=== PATIENT | female | born 1960 | race Caucasian/White ===

== ENCOUNTER → 2020-10-11 12:32 | Outpatient (CLI) | payer OTHER, SELFPAY ==
--- NOTE | 2020-10-11 12:59 | CT_ITS ---
PROCEDURE INFORMATION: Exam: CT Abdomen And Pelvis With Contrast Exam date and time: 10/11/2020 12:59 PM Age: 60 years old Clinical indication: Abdominal tenderness and fever; Prior surgery; Surgery date: 6+ months; Surgery type: Cholecystectomy, appendectomy, colon, , hysterectomy; Additional info: Fever chills, decreased appetite, n/v, S/P small bowel resectio TECHNIQUE: Imaging protocol: Computed tomography of the abdomen and pelvis with contrast. Radiation optimization: All CT scans at this facility use at least one of these dose optimization techniques: automated exposure control; mA and/or kV adjustment per patient size (includes targeted exams where dose is matched to clinical indication); or iterative reconstruction. Contrast material: ISOVUE 370; Contrast volume: 75 ml; Contrast route: INTRAVENOUS (IV); Other contrast: Oral, redicat; COMPARISON: No relevant prior studies available. FINDINGS: Lungs: There is a small ground-glass opacity in the inferior right upper lobe as on series 4, image 3. Mediastinal space: There is a small hiatal hernia. Liver: There is a 1.8 cm cyst in the right lobe of the liver. Gallbladder and bile ducts: There is no biliary ductal dilatation status post cholecystectomy. Pancreas: No evidence of focal lesion or ductal dilatation. Spleen: No splenomegaly. A splenic calcification likely represents a calcified granuloma. Adrenal glands: There are left adrenal nodules measuring 0.8 and 0.9 cm best seen on series 601, image 50, indeterminate. No right adrenal nodule. Kidneys and ureters: No hydronephrosis, calculus or enhancing lesion. Subcentimeter hypodense lesions in both kidneys are too small to accurately characterize. Stomach and bowel: No distention or wall thickening. Appendix: The appendix is surgically absent. Intraperitoneal space: No free air or fluid. No focal fluid collection. Vasculature: The abdominal aorta is normal in caliber. Lymph nodes: There is a partially imaged calcified lymph node in the region of the right hilum. No lymphadenopathy. Urinary bladder: Unremarkable as visualized. Reproductive: Status post hysterectomy. The adnexa are unremarkable. Bones/joints: No acute fracture. There are degenerative changes of the spine. Soft tissues: There is a tiny fat containing umbilical hernia. IMPRESSION: 1. No acute inflammatory process in the abdomen or pelvis. 2. Ground-glass opacity in the right lung base could be secondary to an infectious or inflammatory process. 3. Left adrenal nodules measuring up to 0.9 cm in size. COMMENTS: 1. Consistent with the [employer]'s Incidental Findings Committee white paper (J Am Diana Radiol 2017): Any incidental adrenal lesion less than or equal to 1 cm is likely benign. No follow-up imaging is recommended for these lesions per consensus recommendations based on imaging criteria. Further lab evaluation could be pursued if warranted based on clinical findings. 2. Consistent with the [employer]'s Incidental Findings Committee white paper (J Am Diana Radiol 2018): Any incidental renal lesion less than 1 cm or classified as too small to characterize, or any incidental cystic renal lesion characterized as simple-appearing, is likely benign. No follow-up imaging is recommended for these lesions per consensus recommendations based on imaging criteria.
[2020-10-11 13:00] LABS: Basophils # 0.1 K/mm3 (0-0.2); Basophils % 0.6 % (0.1-2.0); Eosinophils # 0.2 K/mm3 (0.0-0.4); Eosinophils % 1.8 % (0.1-12.0); Hematocrit 46.1 % (37.0-47.0); Hemoglobin 15.1 g/dL (12.2-16.2); Lymphocytes # 2.2 K/mm3 (0.7-4.5); Lymphocytes % 23.7 % (10-50); Mean Corpuscular HGB Conc 32.8 g/dL (31.8-35.4); Mean Corpuscular Hemoglobin 29.8 pg (27.0-31.2); Mean Corpuscular Volume 90.8 fl (81-99); Mean Platelet Volume 8.1 fl (7.4-10.4); Monocytes # 0.4 K/mm3 (0.1-1.0); Monocytes % 4.7 % (1.7-9.3); Neutrophils # 6.3 K/mm3 (1.8-7.8); Neutrophils % 69.2 % (37.0-80.0); Platelet Count 256 K/mm3 (142-424); Red Blood Count 5.08 M/mm3 (4.20-5.40); Red Cell Distribution Width 13.5 % (11.5-17.5); White Blood Count 9.1 K/mm3 (4.8-10.8)
[2020-10-11 13:06] LABS: Chloride 107 mmol/L (98-107); Potassium 3.8 mmoL/L (3.5-5.1); Sodium 140 mmol/L (136-145)
[2020-10-11 13:08] LABS: Alanine Aminotransferase 30 U/L (12-78); Amylase 79 U/L (30-110); Aspartate Amino Transferase 29 U/L (14-36); Blood Urea Nitrogen 12 mg/dl (7-17); Estimated Glomerular Filt Rate 102 ml/min (>60); GFR (African American) 124 ML/MIN (>60)
[2020-10-11 13:09] LABS: Albumin Level 4.2 g/dl (3.5-5.0); Albumin/Globulin Ratio 1.4 (1.1-1.8); Alkaline Phosphatase 129 U/L (38-126); Anion Gap 11.8 mEq/L (5-15); Bilirubin,Total 0.4 mg/dl (0.2-1.3); Calcium 9.3 mg/dl (8.4-10.2); Carbon Dioxide 25 mmol/L (22.0-30.0); Glucose 137 mg/dl (74-100); Lipase 137 U/L (23-300); Total Protein,Serum 7.2 g/dl (6.3-8.2)
== END ==
PROVIDERS: Visit Provider Nurse Practitioner Family
DX: R10.84 Generalized abdominal pain (principal); R50.9 Fever, unspecified; R63.0 Anorexia; R11.0 Nausea; Z90.49 Acquired absence of other specified parts of digestive tract
CPT/HCPCS: 36415; 74177; 80053; 82150; 83690; 85025; Q9967

== ENCOUNTER 2024-01-01 16:38 | Outpatient (CLI) | payer OTHER, SELFPAY ==
[2024-01-01 17:28] LABS: Hemoglobin A1C 8.1 % (4.0-6.0)
[2024-01-01 18:11] LABS: Alanine Aminotransferase 27 U/L (12-78); Albumin Level 4.2 g/dl (3.5-5.0); Albumin/Globulin Ratio 1.5 (1.1-1.8); Alkaline Phosphatase 176 U/L (38-126); Anion Gap 13.4 mEq/L (5-15); Aspartate Amino Transferase 26 U/L (14-36); Bilirubin,Total 0.4 mg/dl (0.2-1.3); Blood Urea Nitrogen 13 mg/dl (7-17); Calcium 9.9 mg/dl (8.4-10.2); Carbon Dioxide 21 mmol/L (22.0-30.0); Chloride 109 mmol/L (98-107); Chol/HDL Ratio 4.4 (1-3.5); Cholesterol 190 mg/dl (140-200); Estimated Glomerular Filt Rate 73 ml/min (>60); GFR (African American) 88 ML/MIN (>60); Globulin 2.8 g/dL (1.3-3.2); Glucose 138 mg/dl (74-100); HDL Cholesterol 43 mg/dl (40-60); Potassium 4.4 mmoL/L (3.5-5.1); Sodium 139 mmol/L (136-145); Triglycerides 242 mg/dl (30-150); VLDL Cholesterol 48 mg/dL (0-40)
[2024-01-01 18:22] LABS: Direct LDL Cholesterol 108.88 mg/dL (100-129)
[2024-01-01 18:41] LABS: Thyroid Stimulating Hormone 0.59 uIU/mL (0.465-4.68)
== END 2024-01-01 23:59 | disposition home or self-care (01) ==
LOC: LAB.DROPOF 16:39
PROVIDERS: PCP Nurse Practitioner Family; Visit Provider Nurse Practitioner Family
DX: E11.9 Type 2 diabetes mellitus without complications (principal); E78.5 Hyperlipidemia, unspecified
CPT/HCPCS: 80053; 80061; 82043; 83036; 84443

== ENCOUNTER 2024-01-10 10:36 | Outpatient (CLI) | payer OTHER, SELFPAY ==
--- NOTE | 2024-01-10 10:36 | MM_ITS ---
PROCEDURE INFORMATION: Exam: MG Bilateral Screening 3D Mammography Exam date and time: 01/10/2024 10:26 AM Age: 63 years old Clinical indication: Screening examination TECHNIQUE: Imaging protocol: Bilateral Screening tomosynthesis and 2D mammography including computer-aided detection (CAD) when performed. COMPARISON: 1. MG SCN DIG BREAST TOMOSYN NAVIN 03/19/2018 10:13 AM 2. MG DIG MAMMO BILAT SCREENING 04/12/2016 11:21 AM FINDINGS: MAMMOGRAPHY: Breast composition: The breasts are heterogeneously dense, which may obscure small masses. Mass: None. Architectural distortion: None. Calcifications: No suspicious calcifications. Asymmetric density: None. Skin thickening: None. Axillary adenopathy: None. IMPRESSION: No mammographic evidence of malignancy. Annual screening is recommended unless otherwise clinically indicated. ASSESSMENT: BI-RADS Category 1: Negative
== END 2024-01-10 23:59 | disposition home or self-care (01) ==
LOC: RAD 10:36
PROVIDERS: PCP Nurse Practitioner Family; Visit Provider Nurse Practitioner Family
DX: Z12.31 Encounter for screening mammogram for malignant neoplasm of breast (principal)
CPT/HCPCS: 77063; 77067

== ENCOUNTER 2024-03-18 13:16 | Outpatient (CLI) | payer BC, SELFPAY ==
--- NOTE | 2024-03-18 13:16 | MM_ITS ---
PROCEDURE INFORMATION: Exam: US Right Breast, Complete MG Right Diagnostic Breast Tomosynthesis Exam date and time: 03/18/2024 1:25 PM Age: 64 years old Clinical indication: Right breast palpable lump; Mass, lump, or swelling; Additional info: Right breast lump at 11:00 TECHNIQUE: Imaging protocol: Complete ultrasound of all four quadrants of the right breast and the retroareolar regions, including ultrasound of the axilla when performed. Right Diagnostic tomosynthesis and 2D mammography including computer-aided detection (CAD) when performed. Unilateral or bilateral exam. COMPARISON: MG MM DIG SCREENING MAMM BI W/CAD 01/10/2024 10:26 AM FINDINGS: MAMMOGRAPHY: Breast composition: There are scattered areas of fibroglandular density. Breast mammogram findings: A skin marker is placed over the palpable area of concern in the right upper outer quadrant. There are fat containing masses which correlate to the palpable area of concern, indicative of lipomas, the largest measuring 1.7 cm. There is no suspicious or irregular mass, no architectural distortion or suspicious calcifications. ULTRASOUND: Breast ultrasound findings: Complete scanning of the right breast is performed. In the area of palpable concern, 11 o'clock axis, 4 cm from the nipple, there is a hyperechoic superficial mass, measuring 1.6 x 0.8 x 2.0 cm, correlating to the larger fat containing mass on the mammogram. No suspicious distortion or shadowing. Throughout the remainder of the right breast, there are multiple simple and complicated subcentimeter cysts that are similar to 1 another. In the right breast 10 o'clock axis, 3 cm from the nipple, there is a circumscribed hypoechoic homogeneous mass measuring 1.5 x 0.9 x 1.0 cm. This is most probably a fibroadenoma. No suspicious shadowing or distortion. IMPRESSION: 1. In the right breast palpable area of concern, there is a benign fat containing mass, likely lipoma, measuring 2 cm at the 11 o'clock axis, 4 cm from the nipple. Clinical management as needed is recommended. Further evaluation of a palpable abnormality should be based on clinical grounds regardless of radiographic findings or lack thereof. 2. Multiple scattered right breast cysts and probably benign suspected fibro adenoma in the right breast 10 o'clock axis, 3 cm from the nipple. A right breast ultrasound in 6 months is recommended for short-term follow-up. ASSESSMENT: BI-RADS Category 3: Probably benign.
== END 2024-03-18 23:59 | disposition home or self-care (01) ==
LOC: RAD 13:16
PROVIDERS: PCP Nurse Practitioner Family; Visit Provider Nurse Practitioner Family
DX: N63.11 Unspecified lump in the right breast, upper outer quadrant (principal)
CPT/HCPCS: 76641; 77061; 77065; G0279

== ENCOUNTER 2024-04-07 12:24 | Outpatient (CLI) | payer BC, SELFPAY ==
[2024-04-07 13:29] LABS: Alanine Aminotransferase 24 U/L (12-78); Albumin/Globulin Ratio 1.6 (1.1-1.8); Alkaline Phosphatase 121 U/L (38-126); Anion Gap 9.1 mEq/L (5-15); Aspartate Amino Transferase 25 U/L (14-36); Bilirubin,Total 0.5 mg/dl (0.2-1.3); Blood Urea Nitrogen 14 mg/dl (7-17); Calcium 9.5 mg/dl (8.4-10.2); Carbon Dioxide 24 mmol/L (22.0-30.0); Chloride 108 mmol/L (98-107); Chol/HDL Ratio 4.3 (1-3.5); Cholesterol 164 mg/dl (140-200); Estimated Glomerular Filt Rate 72 ml/min (>60); GFR (African American) 88 ML/MIN (>60); Globulin 2.5 g/dL (1.3-3.2); Glucose 96 mg/dl (74-100); HDL Cholesterol 38 mg/dl (40-60); Potassium 4.1 mmoL/L (3.5-5.1); Sodium 137 mmol/L (136-145); Total Protein,Serum 6.5 g/dl (6.3-8.2); Triglycerides 219 mg/dl (30-150); VLDL Cholesterol 44 mg/dL (0-40)
[2024-04-07 13:40] LABS: Direct LDL Cholesterol 94.63 mg/dL (100-129)
[2024-04-07 13:59] LABS: Thyroid Stimulating Hormone 0.32 uIU/mL (0.465-4.68)
[2024-04-07 16:52] LABS: Hemoglobin A1C 6.2 % (4.0-6.0)
== END 2024-04-07 23:59 | disposition home or self-care (01) ==
LOC: LAB 12:25
PROVIDERS: PCP Nurse Practitioner Family; Visit Provider Nurse Practitioner Family
DX: E78.5 Hyperlipidemia, unspecified (principal); E11.9 Type 2 diabetes mellitus without complications; Z79.84 Long term (current) use of oral hypoglycemic drugs
CPT/HCPCS: 36415; 80053; 80061; 83036; 84443

== ENCOUNTER 2024-05-05 14:11 | Outpatient (CLI) | payer BC, SELFPAY ==
[2024-05-05 13:45] LABS: Free T4 (Free Thyroxine) 0.84 ng/dl (0.78-2.19)
[2024-05-05 13:51] LABS: T4 (Thyroxine) 8.3 ug/dl (5.53-11.0)
[2024-05-06 03:53] LABS: Thyroid Peroxidase Antibodies 13 IU/mL (0-34)
[2024-05-06 14:35] LABS: Thyroglobulin Level <1.0 IU/mL (0.0-0.9)
== END 2024-05-05 23:59 | disposition home or self-care (01) ==
LOC: LAB.DROPOF 14:12
PROVIDERS: PCP Nurse Practitioner Family; Visit Provider Nurse Practitioner Family
DX: R79.89 Other specified abnormal findings of blood chemistry (principal)
CPT/HCPCS: 84436; 84439; 84443; 84481; 86376; 86800

== ENCOUNTER 2024-07-02 08:55 | Outpatient (CLI) | payer OTHER, SELFPAY ==
[2024-07-02 17:26] LABS: Alanine Aminotransferase 26 U/L (12-78); Albumin Level 4.1 g/dl (3.5-5.0); Alkaline Phosphatase 126 U/L (38-126); Aspartate Amino Transferase 27 U/L (14-36); Bilirubin,Total 0.3 mg/dl (0.2-1.3); Blood Urea Nitrogen 13 mg/dl (7-17); Calcium 9.5 mg/dl (8.4-10.2); Carbon Dioxide 25 mmol/L (22.0-30.0); Chloride 107 mmol/L (98-107); Chol/HDL Ratio 4.7 (1-3.5); Cholesterol 137 mg/dl (140-200); Estimated Glomerular Filt Rate 85 ml/min (>60); GFR (African American) 102 ML/MIN (>60); Globulin 2.1 g/dL (1.3-3.2); Glucose 80 mg/dl (74-100); HDL Cholesterol 29 mg/dl (40-60); Total Protein,Serum 6.2 g/dl (6.3-8.2); Triglycerides 164 mg/dl (30-150); VLDL Cholesterol 33 mg/dL (0-40)
[2024-07-02 17:36] LABS: Direct LDL Cholesterol 84.02 mg/dL (100-129)
[2024-07-02 17:38] LABS: Intact Parathyroid Hormone 56.8 pg/mL (7.5-53.5)
[2024-07-02 17:39] LABS: 25-OH Vitamin D, Total 38.6 ng/mL (30-100)
[2024-07-02 17:42] LABS: Free T4 (Free Thyroxine) 0.98 ng/dl (0.78-2.19)
[2024-07-02 17:43] LABS: T4 (Thyroxine) 9.4 ug/dl (5.53-11.0)
[2024-07-02 17:56] LABS: Thyroid Stimulating Hormone 0.45 uIU/mL (0.465-4.68)
[2024-07-02 17:58] LABS: Sodium 139 mmol/L (136-145)
[2024-07-03 08:17] LABS: Triiodothyronine (T3) Free 3.1 pg/mL (2.0-4.4)
== END 2024-07-02 23:59 | disposition home or self-care (01) ==
LOC: LAB.DROPOF 07-04 08:56
PROVIDERS: PCP Nurse Practitioner Family; Visit Provider Nurse Practitioner Family
DX: E78.5 Hyperlipidemia, unspecified (principal); E55.9 Vitamin D deficiency, unspecified; R79.89 Other specified abnormal findings of blood chemistry; E11.9 Type 2 diabetes mellitus without complications
CPT/HCPCS: 80053; 80061; 82306; 83970; 84436; 84439; 84443; 84481

== ENCOUNTER 2024-10-27 15:19 | Outpatient (CLI) | payer OTHER, SELFPAY ==
[2024-10-27 18:45] LABS: Hemoglobin A1C 6.3 % (4.0-6.0)
[2024-10-27 19:31] LABS: Creatinine,Urine Random 62 mg/dL (Not Estab.)
[2024-10-27 19:36] LABS: Microalbumin < 6.000 mg/L (0-16.7)
[2024-10-27 20:06] LABS: Albumin Level 4.1 g/dl (3.5-5.0); Chloride 110 mmol/L (98-107); Potassium 4.2 mmoL/L (3.5-5.1); Sodium 139 mmol/L (136-145)
[2024-10-27 20:09] LABS: Alanine Aminotransferase 20 U/L (12-78); Albumin/Globulin Ratio 1.8 (1.1-1.8); Alkaline Phosphatase 135 U/L (38-126); Anion Gap 9.2 mEq/L (5-15); Aspartate Amino Transferase 25 U/L (14-36); Bilirubin,Total 0.4 mg/dl (0.2-1.3); Blood Urea Nitrogen 14 mg/dl (7-17); Carbon Dioxide 24 mmol/L (22.0-30.0); Cholesterol 181 mg/dl (140-200); Estimated Glomerular Filt Rate 72 ml/min (>60); GFR (African American) 88 ML/MIN (>60); Globulin 2.3 g/dL (1.3-3.2); Total Protein,Serum 6.4 g/dl (6.3-8.2); Triglycerides 278 mg/dl (30-150); VLDL Cholesterol 56 mg/dL (0-40)
[2024-10-27 20:10] LABS: Calcium 9.2 mg/dl (8.4-10.2); Chol/HDL Ratio 4.3 (1-3.5); Glucose 84 mg/dl (74-100); HDL Cholesterol 42 mg/dl (40-60)
[2024-10-27 20:19] LABS: Free T4 (Free Thyroxine) 0.88 ng/dl (0.78-2.19)
[2024-10-27 20:22] LABS: Direct LDL Cholesterol 103.11 mg/dL (100-129)
[2024-10-27 20:27] LABS: T4 (Thyroxine) 7.4 ug/dl (5.53-11.0)
[2024-10-27 20:40] LABS: Thyroid Stimulating Hormone 0.35 uIU/mL (0.465-4.68)
== END 2024-10-27 23:59 | disposition home or self-care (01) ==
LOC: LAB.DROPOF 10-28 14:11
PROVIDERS: PCP Nurse Practitioner Family; Visit Provider Nurse Practitioner Family
DX: E78.5 Hyperlipidemia, unspecified (principal); E11.9 Type 2 diabetes mellitus without complications; I10 Essential (primary) hypertension; R79.89 Other specified abnormal findings of blood chemistry; K21.9 Gastro-esophageal reflux disease without esophagitis; Z79.84 Long term (current) use of oral hypoglycemic drugs; F17.210 Nicotine dependence, cigarettes, uncomplicated
CPT/HCPCS: 80053; 80061; 82043; 82570; 83036; 83735; 84436; 84439; 84443; 84481

== ENCOUNTER 2024-11-06 08:57 | Outpatient (CLI) | payer OTHER, SELFPAY ==
[2024-11-07 13:19] LABS: Adrenocorticotropic Hormone 5.6 pg/mL (7.2-63.3)
[2024-11-07 16:05] LABS: Cortisol,AM 11.3 ug/dL (6.2-19.4)
== END 2024-11-06 23:59 | disposition home or self-care (01) ==
LOC: LAB 08:59
PROVIDERS: PCP Nurse Practitioner Family; Visit Provider Nurse Practitioner Family
DX: R79.89 Other specified abnormal findings of blood chemistry (principal)
CPT/HCPCS: 36415; 82024; 82384; 82533

== ENCOUNTER 2024-12-22 13:50 | Outpatient (CLI) | payer OTHER, SELFPAY ==
[2024-12-22 16:53] LABS: Coronavirus 19, PCR Not Detected (NotDetected); Influenza A, PCR Not Detected (NotDetected); Influenza B, PCR Not Detected (NotDetected)
== END 2024-12-22 23:59 | disposition home or self-care (01) ==
LOC: LAB.DROPOF 12-23 10:04
PROVIDERS: PCP Nurse Practitioner Family; Visit Provider Nurse Practitioner Family
DX: R05.9 Cough, unspecified (principal); R50.9 Fever, unspecified
CPT/HCPCS: 87631

== ENCOUNTER 2025-05-18 16:36 | Outpatient (CLI) | payer OTHER, SELFPAY ==
--- OUTSIDE RECORDS SUMMARY | 2024-11-28 09:32 | XMS_ITS | Encounter Summary ---
[facility] Address [address] [place] [id number] Care Team Providers Care Harvest Worker Name Role Phone Antoinette Asencio APRN Primary Care Provider [phone] Reason for Visit * Diagnostic Imaging (Routine) - Closed Specialty Diagnoses / Procedures Referred By Contac t Referred To Contact Radiology Diagnoses Abnormal thyroid function test Procedures US Thyroid Beata Muñoz MD [address] [employer] [address] [place] [id number] Phone: tel: fax: Referral ID Status Reason Start Date Expiration Date Visits Re quested Visits Authorized [id number] Closed 11/28/2024 02/27/2026 1 1 Encounter Details Date Type Department Care Team (Late st Contact Info) Description 11/28/2024 10:32 AM EDT Hospital Encounter [facility] [address] [place] [phone] Social History Tobacco Use Types Packs/Day [...] Description 06/24/2025 10:00 AM EST Office Visit [facility] [address] [place] [phone] Beata Muñoz MD [address] [facility] [address] [place] [address] documented as of this encounter Procedures Procedure [...] on filedocumented in this encounter Care Teams Harvest Worker Relationship Specialty Start Date End Date Antoinette Asencio APRN [address] [phone] PCP - General Internal Medicine 11/28/24 documented as of this encounter
[2025-05-18 15:37] LABS: Hemoglobin A1C 5.6 % (4.0-6.0)
[2025-05-18 15:42] LABS: Albumin Level 4.1 g/dl (3.5-5.0); Chloride 106 mmol/L (98-107); Sodium 142 mmol/L (136-145)
[2025-05-18 15:43] LABS: Potassium 4.3 mmoL/L (3.5-5.1)
[2025-05-18 15:45] LABS: Alanine Aminotransferase 16 U/L (12-78); Albumin/Globulin Ratio 1.7 (1.1-1.8); Alkaline Phosphatase 104 U/L (38-126); Anion Gap 16.3 mEq/L (5-15); Aspartate Amino Transferase 24 U/L (14-36); Bilirubin,Total 0.4 mg/dl (0.2-1.3); Blood Urea Nitrogen 19 mg/dl (7-17); Carbon Dioxide 24 mmol/L (22.0-30.0); Creatinine,Serum 0.90 mg/dl (0.52-1.04); Estimated Glomerular Filt Rate 63 ml/min (>60); GFR (African American) 76 ML/MIN (>60); Globulin 2.4 g/dL (1.3-3.2); Total Protein,Serum 6.5 g/dl (6.3-8.2)
[2025-05-18 15:46] LABS: Calcium 9.2 mg/dl (8.4-10.2); Cholesterol 115 mg/dl (140-200); Glucose 75 mg/dl (74-100); HDL Cholesterol 35 mg/dl (40-60); Magnesium 2.4 mg/dl (1.6-2.3); Triglycerides 134 mg/dl (30-150)
[2025-05-18 16:19] LABS: Thyroid Stimulating Hormone 1.06 uIU/mL (0.465-4.68)
--- OUTSIDE RECORDS SUMMARY | 2025-05-18 16:38 | XMS_ITS | Clinical Summary ---
Author Organization [facility] Address [address] [place] [address] Care Team Providers Care Stain Applicator Name Role Phone Antoinette Asencio APRN Primary Care Provider + [phone] Allergies No known active allergies Medications atorvastatin (LIPITOR) 20 MG tablet Take 1 tablet by mouth Daily. 10/28/2024 Active lisinopril-hydr ochlorothiazide (PRINZIDE,ZESTO RETIC) 10-12.5 MG per tablet Take 1 tablet by mouth Daily. Active lansoprazole (PREVACID) 15 MG capsule Take 1 capsule by mouth Daily. Active amLODIPine (NORVASC) 10 MG tablet Take 1 tablet by mouth Daily. Active Farxiga 10 MG tablet 11/05/2024 Active metFORMIN ER (GLUCOPHAGE-XR) 500 MG 24 hr tablet Take 1 tablet by mouth Daily With Breakfast. Active escitalopram (LEXAPRO) 10 MG tablet Take 1 tablet by mouth Daily. 11/06/2024 Active vitamin D3 125 MCG (5000 UT) capsule capsule Take 1 capsule by mouth Daily. Active B Complex Vitamins (vitamin b complex) capsule capsule Take by mouth Daily. Active naproxen sodium (ALEVE) 220 MG tablet Take 1 tablet by mouth 2 (Two) Times a Day As Needed. Active Active Problems Problem Noted Date Diagnosed Date Type 2 diabetes mellitus Family History Medical History Relation Name Comments No Known Problems Father No Known Problems Mother Relation Name Status Comments Father Mother Social History Tobacco Use Types Packs/Day Years Used Date Smoking Tobacco: Every Day Cigarettes Tobacco Cessation:Ready to Q uit: Yes; Counseling Given: Not Answered Alcohol Use Standard Drinks/Week Comments Not Currently 0 (1 standard drink = 0.6 oz pur e alcohol) Comments Unknown Sex and Gender Information Value Date Recorded Sex Assigned at Not on file Legal Sex Female 8:58 AM EDT Gender Identity Not on file Sexual Orientation Not on file Last Filed Vital Signs Vital Sign Reading Time Taken Comments Blood Pressure 118/60 11/28/2024 9:43 AM EDT Pulse 70 11/28/2024 9:43 AM EDT Temperature - - Respiratory Rate - - Oxygen Saturation 95% 11/28/2024 9:43 AM EDT Inhaled Oxygen Concentration - - Weight 87.9 kg (193 lb 12.8 oz) 11/28/2024 9:43 AM EDT Height 170.2 cm (5' 7 ) 11/28/2024 9:43 AM EDT Body Mass Index 30.35 11/28/2024 9:43 AM EDT Plan of Treatment Upcoming Encounters Date Type Department Care Team (Late st Contact Info) Description 06/24/2025 10:00 AM EST Office Visit [facility] [address] [place] [phone] Beata Muñoz MD [address] [place] [address] Health Maintenance Due Date Last Done Comments Annual Gynecologic Pelvic and Breast Exam 1961 DIABETIC EYE EXAM 1971 DIABETIC FOOT EXAM 1971 URINE MICROALBUMIN-CREATININE RATIO (uACR) 1971 Pneumococcal Vaccine 50+ (1 of 2 - PCV) 1980 TDAP/TD VACCINES (1 - Tdap) 1980 MAMMOGRAM 2001 COLOGUARD 2006 COLON CANCER SCREENING 5 YEAR SIGMOIDOSCOPY 2006 COLONOSCOPY 2006 COL[address]ECTAL CANCER SCREENING 2006 CT COLONOGRAPHY 2006 FECAL OCCULT BLOOD TEST 2006 FIT Testing (1 year) 2006 ZOSTER VACCINE (1 of 2) 2011 ANNUAL PHYSICAL 11/28/2024 HEMOGLOBIN A1C 11/28/2024 HEPATITIS C SCREENING 11/28/2024 INFLUENZA VACCINE 01/16/2025 Insurance [facility] [employer] Care Teams Stain Applicator Relationship Specialty Start Date End Date Antoinette Asencio APRN [address] [place] [phone] PCP - General Internal Medicine 11/28/24
[2025-05-18 16:44] LABS: 25-OH Vitamin D, Total 76.4 ng/mL (30-100)
[2025-05-18 17:16] LABS: Vitamin B12 810 pg/mL (239-931)
== END 2025-05-18 23:59 | disposition home or self-care (01) ==
LOC: LAB.DROPOF 16:36
PROVIDERS: PCP Nurse Practitioner Family; Visit Provider Nurse Practitioner Family
DX: E55.9 Vitamin D deficiency, unspecified (principal); E78.5 Hyperlipidemia, unspecified; E11.9 Type 2 diabetes mellitus without complications; K21.9 Gastro-esophageal reflux disease without esophagitis; I10 Essential (primary) hypertension
CPT/HCPCS: 80053; 80061; 82306; 82607; 83036; 83735; 84443

== ENCOUNTER 2025-06-09 09:17 | Outpatient (CLI) | payer OTHER, SELFPAY ==
--- OUTSIDE RECORDS SUMMARY | 2024-11-28 09:32 | XMS_ITS | Encounter Summary ---
[facility] Address [address] [place] [id number] Care Team Providers Care Durability Engineer Name Role Phone Antoinette Asencio APRN Primary Care Provider [phone] Reason for Visit * Diagnostic Imaging (Routine) - Closed Specialty Diagnoses / Procedures Referred By Contac t Referred To Contact Radiology Diagnoses Abnormal thyroid function test Procedures US Thyroid Beata Muñoz MD [address] [employer] [address] [place] [address] Phone: tel: fax: Referral ID Status Reason Start Date Expiration Date Visits Re quested Visits Authorized [id number] Closed 11/28/2024 02/27/2026 1 1 Encounter Details Date Type Department Care Team (Late st Contact Info) Description 11/28/2024 10:32 AM EDT Hospital Encounter [facility] [address] [place] [phone] Social History Tobacco Use Types Packs/Day Years Used Date Smoking Tobacco: Every Day Cigarettes Alcohol Use Standard Drinks/Week Comments Not Currently 0 (1 standard drink = 0.6 oz pur e alcohol) Comments Unknown Sex and Gender Information Value Date Recorded Sex Assigned at Not on file Legal Sex Female 8:58 AM EDT Gender Identity Not on file Sexual Orientation Not on file documented as of this encounter Plan of Treatment Upcoming Encounters Date Type Department Care Team (Late st Contact Info) Description 06/24/2025 10:00 AM EST Office Visit [facility] [address] [place] [phone] Beata Muñoz MD [address] [facility] [address] [place] [address] documented as of this encounter Procedures Procedure Name Priority Date/Time Associated Diagnosis Comments US THYROID Routine 11/28/2024 10:32 AM EDT Abnormal thyroid function test documented in this encounter Results * US Thyroid (11/28/2024 10:32 AM EDT) Narrative SYSTEMGENERATED, DOCUMENTATION - 11/28/2024 10:32 AM EDT Please see performing physician's note for result. us Beata Deleon MD IMG US ORDERABLES Final Result documented in this encounter Visit Diagnoses Not on filedocumented in this encounter Care Teams Durability Engineer Relationship Specialty Start Date End Date Antoinette Asencio APRN [address] [address] PCP - General Internal Medicine 11/28/24 documented as of this encounter
--- OUTSIDE RECORDS SUMMARY | 2025-06-09 09:21 | XMS_ITS | Clinical Summary ---
Author Organization [facility] Address [address] [place] [address] Care Team Providers Care Microwave Radio Technician Name Role Phone Antoinette Asencio APRN Primary Care Provider + [phone] Allergies No known active allergies Medications atorvastatin [...] Height 170.2 cm (5' 7 ) 11/28/2024 9:4 3 AM EDT Body Mass Index 30.35 11/28/2024 9:43 AM EDT Plan of Treatment Upcoming Encounters Date Type Department Care Team (Late st Contact Info) Description 06/24/2025 10:00 AM EST Office Visit [facility] [address] [place] [phone] Beata Muñoz MD [address] [place] [address] Health Maintenance Due Date Last Done Comments [...] C SCREENING 11/28/2024 INFLUENZA VACCINE 01/16/2025 Insurance [facility] [employer] H[employer] Care Teams Microwave Radio Technician Relationship Specialty Start Date End Date Antoinette Asencio APRN [address] [place], [place] [id number] PCP - General Internal Medicine 11/28/24
--- NOTE | 2025-06-09 09:30 | XR_ITS ---
FINAL REPORT CLINICAL HISTORY: screening for osteoporosis COMPARISON: None FINDINGS: Using L1-4, the bone mineral density of the spine is 1.018 g/cm2, corresponding to T-score of -0.3. Using the left hip, the bone mineral density of the femoral neck is 0.717 g/cm2, corresponding to a T-score of -1.8. Using the right hip, the bone mineral density of the femoral neck is 0.841 g/cm2, corresponding to a T-score of -0.8. NOTE: T-score: Standard deviation compared with peak bone mass of young adult mean. *Following the recommendations of the International Society of Bone densitometry, classification of hip BMD is based on the lower of two T-scores; total hip or femoral neck. IMPRESSION: Normal bone mineral density of the lumbar spine and right hip. Diminished bone mineral density of the left hip consistent with osteopenia. Reviewed, Interpreted and Dictated by Hadley Crooks MD Transcribed by Roxie Stearns Authenticated and [facility]
== END 2025-06-09 23:59 ==
LOC: RAD 09:18
PROVIDERS: PCP Nurse Practitioner Family; Visit Provider Nurse Practitioner Family
DX: Z13.820 Encounter for screening for osteoporosis (principal); Z78.0 Asymptomatic menopausal state; M85.88 Other specified disorders of bone density and structure, other site
CPT/HCPCS: 77080